=== PATIENT | female | born 1975 | race Caucasian/White ===

== ENCOUNTER → 2021-12-06 | Day surgery (SDC) | payer OTHER ==
[~2021-12-06] MED LIST: BUPROPION XL150 MG PO; IBUPROFEN800 MG PO; NAPROSYN500 MG PO; TORADOL 10 MG T10 MG PO
== END | disposition home or self-care (01) ==
LOC: OR 07:46
DX: D12.7 Benign neoplasm of rectosigmoid junction (principal); D12.2 Benign neoplasm of ascending colon; D12.3 Benign neoplasm of transverse colon; K64.1 Second degree hemorrhoids; F17.210 Nicotine dependence, cigarettes, uncomplicated; E66.3 Overweight; Z68.26 Body mass index [BMI] 26.0-26.9, adult; Z79.899 Other long term (current) drug therapy
CPT/HCPCS: 84703; J7040